=== PATIENT | male | born 2000 | race Two or more races ===

== ENCOUNTER 2022-01-21 23:01 | Emergency (ER) | payer MEDICAID ==
[~2022-01-21] VITALS: Ht 180.3 cm; Wt 66.2 kg
[2022-01-21 23:45] VITALS: BP 105/72
[2022-01-22 02:24] LABS: Amphetamine Screen, Urine NEGATIVE (NEGATIVE); Barbiturate Scree,Urine NEGATIVE (NEGATIVE); Benzodiazephine Screen, Urine NEGATIVE (NEGATIVE); Cannabinoid Screen, Urine NEGATIVE (NEGATIVE); Cocaine Screen, Urine NEGATIVE (NEGATIVE); Opiate Scree,Urine NEGATIVE (NEGATIVE); Phencyclidine Screen, Urine NEGATIVE (NEGATIVE)
== END 2022-01-22 04:30 | disposition left against medical advice (07) ==
LOC: ER 23:01
DX: R51.9 Headache, unspecified (principal); Z53.21 Procedure and treatment not carried out due to patient leaving prior to being seen by health care provider
CPT/HCPCS: 80307